=== PATIENT | female | born 1960 | race African-American/Black ===

== ENCOUNTER → 2017-04-08 | Outpatient (CLI) | payer OTHER | LOC: NPA 13:00 | DX: R69 Illness, unspecified (principal) ==

== ENCOUNTER 2017-11-17 23:43 | Observation (INO) | payer MEDICARE ==
[~2017-11-17] VITALS: Ht 154.9 cm; Wt 90.0 kg
[2017-11-18] VITALS (8 sets, daily range): BP systolic 103–168; BP diastolic 55–95
[2017-11-18 01:04] LABS: BASOPHILS # (AUTO) 0.1 (0.0-0.1); BASOPHILS % 1.2 % (0.0-1.0); EOSINOPHILS # (AUTO) 1.3 (0.0-0.4); EOSINOPHILS % 13.2 % (0.0-6.0); HEMATOCRIT 40.3 % (34.2-44.1); HEMOGLOBIN 13.1 g/dL (12.0-16.0); LYMPHOCYTES # (AUTO) 1.7 (1.0-3.2); LYMPHOCYTES % 17.7 % (18.0-39.1); MEAN CORPUSCULAR HEMOGLOBIN 29.2 pg (28-32); MEAN CORPUSCULAR HGB CONC 32.5 g/dL (31-35); MEAN CORPUSCULAR VOLUME 89.8 fL (81-99); MONOCYTES % 9.9 % (4.4-11.3); NEUTROPHILS # (AUTO) 5.7 (2.1-6.9); NEUTROPHILS % 57.8 % (38.7-80.0); PLATELET COUNT 187 x10e3/uL (140-360); RED BLOOD COUNT 4.49 x10e6/uL (3.6-5.1); RED CELL DISTRIBUTION WIDTH 13.4 % (11.7-14.4)
[2017-11-18 01:14] LABS: INR 1.11; PARTIAL THROMBOPLASTIN TIME 24.5 seconds (23.8-35.5); PROTHROMBIN TIME 13.5 seconds (11.9-14.5)
[2017-11-18 01:24] LABS: ALBUMIN 3.8 g/dL (3.5-5.0); ALBUMIN/GLOBULIN RATIO 0.7 (0.8-2.0); ANION GAP 19.8 mmol/L (8-16); CALCIUM 9.1 mg/dL (8.4-10.2); CREATININE, SERUM 5.44 mg/dL (0.57-1.11); POTASSIUM 4.8 mmol/L (3.5-5.1)
--- NOTE | 2017-11-18 01:24 | Diagnostic Imaging Report ---
CHEST 2 VIEWS, Technique: CHEST 2 VIEWS Comparison: None Clinical history: Chest pain DISCUSSION: Right central venous/dialysis catheter overlies the right atrium. Left axillary stents. Mildly enlarged cardiomediastinal silhouette. Aortic calcifications. Diffuse opacities with moderate left effusion. IMPRESSION: Enlarged cardiac silhouette with edema and moderate left effusion. Signed by: Dr Shabana Calero MD on 11/18/2017 1:20 AM
[2017-11-18] MEDS ORDERED: INSULIN LISPRO 100 UNIT/1 ML 3ML VIAL SQ STA (02:18)
[2017-11-18] MEDS ORDERED: ASPIRIN 81 MG CHEW TAB PO STA (02:32)
[2017-11-18] MEDS ORDERED: NITROGLYCERIN0.4 MG SL (02:37)
[2017-11-18] MEDS ORDERED: GABAPENTIN300 MG PO (02:37)
[2017-11-18] MEDS ORDERED: CARVEDILOL12.5 MG PO (02:37)
[2017-11-18] MEDS ORDERED: COUMADIN2.5 MG PO (02:37)
[2017-11-18] MEDS ORDERED: CLONIDINE HCL0.3 MG PO (02:37)
[2017-11-18] MEDS ORDERED: LISINOPRIL20 MG PO (02:37)
[2017-11-18] MEDS ORDERED: ATORVASTATIN CA20 MG PO (02:37)
[2017-11-18] MEDS ORDERED: ISOSORBIDE MONO20 MG PO (02:37)
[2017-11-18] MEDS ORDERED: SENSIPAR30 MG PO (02:37)
[2017-11-18] MEDS ORDERED: RENAGEL800 MG PO (02:37)
[2017-11-18] MEDS ORDERED: CLOPIDOGREL75 MG PO (02:37)
[2017-11-18] MEDS ORDERED: HYDRALAZINE HCL25 MG PO (02:37)
[2017-11-18] MEDS ORDERED: CLONIDINE HCL 0.2 MG TAB PO ONE (02:45)
[2017-11-18] MEDS: NITROGLYCERIN 2% OINT 1 GM PKT TOP SCH ×4 (02:57→16:23)
[2017-11-18] MEDS ORDERED: ONDANSETRON HCL INJ 2 MG/ML VIAL IV PRN (03:00)
[2017-11-18] MEDS ORDERED: MORPHINE SULFATE 2 MG/ML SYR IV PRN (03:00)
[2017-11-18] MEDS ORDERED: DEXTROSE 50% SYRINGE 50 ML IV PRN (03:00)
[2017-11-18 07:29] LABS: CREATINE KINASE MB 1.8 ng/mL (0-5.0)
[2017-11-18] MEDS: INSULIN REGULAR, HUMAN 100 UNIT/1 ML 3ML VIAL SQ SCH ×4 (08:12→21:00)
[2017-11-18] MEDS: ASPIRIN 81 MG ENTERIC COATED PO SCH (09:00)
[2017-11-18] MEDS: FAMOTIDINE 20 MG/2 ML VIAL IV SCH ×2 (09:00→22:16)
[2017-11-18 12:31] LABS: CREATINE KINASE MB 1.9 ng/mL (0-5.0)
[2017-11-18] MEDS ORDERED: NITROGLYCERIN 0.4 MG SUBL SL SCH (12:45)
[2017-11-18] MEDS: HYDRALAZINE HCL 25 MG TAB PO SCH ×2 (14:00→22:00)
[2017-11-18] MEDS: CLONIDINE HCL 0.3 MG TAB PO SCH ×3 (14:00→22:00)
--- NOTE | 2017-11-18 14:31 | History and Physical ---
PRIMARY CARE PHYSICIAN: . CORPORATION SECRETARY: Dr. Dick. CHIEF COMPLAINT: Chest pain. HISTORY OF PRESENT ILLNESS: This is a 56-year-old woman with a history of myocardial infarction with a stent in 2007, now developing substernal chest pain without any radiation. She had mild shortness of breath. Pain has been intermittent for some time, actually. Patient's last stress test was more than 2 years ago. She denies any dizziness, nausea, vomiting. Patient found to have markedly elevated blood pressure. She is admitted for further evaluation and management. PAST MEDICAL HISTORY: End-stage renal disease on hemodialysis Monday/Monday/Monday, myocardial infarction status post stent in 2007, hypertension, diabetes mellitus, diabetic neuropathy, hyperlipidemia, right lower extremity venous thromboembolism status post bypass procedure, status post utilization of an anticoagulant. PAST SURGICAL HISTORY: Fistula placement, coronary stent placement, bypass procedure of the right lower extremity. ALLERGIES: PER THE ELECTRONIC MEDICAL RECORDS. FAMILY HISTORY/SOCIAL HISTORY: Patient is single. She has children. No alcohol, illicit drugs or cigarettes. MEDICATIONS: Per the electronic medical records. Medications reviewed. REVIEW OF SYSTEMS: Denies any dizziness, fever, chills, sweats, nausea, vomiting, diarrhea, leg back pain, back pain, headache. VITAL SIGNS: Have been reviewed. PHYSICAL EXAMINATION GENERAL APPEARANCE: A tired-appearing woman resting in bed. HEENT: Anicteric. CARDIOVASCULAR: Normal S1/S2. No murmurs audible. LUNGS: She has moderate breath sounds. ABDOMEN: Soft, nondistended. She has mild tenderness in the epigastrium. MUSCULOSKELETAL: She has right chest hemodialysis catheter in place. She has right arm hemodialysis access. EXTREMITIES: No edema or calf tenderness. NEUROLOGICALLY: She is alert and oriented x3. She moves all extremities. SKIN: Dry. PSYCHIATRIC: Flat affect. LABS: Reviewed. ASSESSMENT: This is a 56-year-old woman. 1. Hypertensive emergency. 2. Chest pain. 3. End-stage renal disease on hemodialysis. 4. Diabetes mellitus. 5. Obesity. 6. Left pleural effusion. 7. Hyperlipidemia. 8. Diabetes with diabetic neuropathy. 9. History of venous thromboembolism of the right lower extremity. PLAN 1. Trend cardiac enzymes. 2. Obtain brain natriuretic peptide. 3. Obtain 2-D echocardiogram. 4. Cardiology consultation. 5. Nephrology consultation for dialysis. 6. Stress test inpatient versus outpatient. I will defer to Cardiology. 7. Continue Coumadin for the history of right leg venous thromboembolism. INR is currently subtherapeutic. 8. Will use Pepcid with her anticoagulant. 9. Continue Plavix, beta isiah, aspirin and other medications. Job#: [id number] EV
--- NOTE | 2017-11-18 17:43 | Consultation ---
DATE OF CONSULTATION: November 18, 2017 NEPHROLOGY CONSULTATION REASON FOR CONSULT: End-stage renal disease, fluid overload. HISTORY OF PRESENT ILLNESS: Mrs. Holland is a 56-year-old female with the following problem list: 1. End-stage renal disease on chronic hemodialysis, a patient of Dr. Serrano, dialysis on Monday/Monday/Monday at the [facility] on [address] [address]. 2. Atherosclerotic cardiovascular disease. 3. Coronary artery disease with a history of myocardial infarction, status post stent placement. 4. Morbid obesity. 5. Diabetes mellitus type 2. 6. Dyslipidemia. 7. History of right lower extremity venous thromboembolism. The patient was admitted with shortness of breath and chest pain that has been intermittent. She had a stress test 2 years ago but no cardiology followup since. Her last dialysis was Monday. PAST MEDICAL HISTORY: As above. PAST SURGICAL HISTORY: She is status post fistula creation, right lower extremity bypass, and coronary stent placement. ALLERGIES: PER ALLERGY LIST. MEDICATIONS: Per medication list. SOCIAL HISTORY: No tobacco, alcohol, or illicit or recreational drug use. The patient is single and has no children. REVIEW OF SYSTEMS: No fever or chills, masses, rashes. Chest pain has improved. Mild shortness of breath. No vomiting, diarrhea or constipation. No back pain, headaches, vision or hearing changes. PHYSICAL FINDINGS GENERAL: Alert, oriented, obese adult female in no acute distress. VITAL SIGNS: Blood pressure 132/62, heart rate 83 per minute. SHENT: Fundi not visualized. Conjunctivae anicteric. Head normocephalic, atraumatic. NECK: Supple. No JVD, no lymphadenopathy. LUNGS: Bilaterally clear to auscultation. HEART: Normal heart sounds. No additional sounds. ABDOMEN: Soft, nontender. No organomegaly. EXTREMITIES: No cyanosis, clubbing or edema. LABORATORY FINDINGS: Noted and reviewed. ASSESSMENT AND PLAN 1. End-stage renal disease. The patient will be continued on hemodialysis and will receive hemodialysis today due to chest pain and shortness of breath and mild volume overload. 2. Atherosclerotic cardiovascular disease. 3. Coronary artery disease. Further management per Cardiology. The patient is undergoing an echocardiogram. 4. Hypertension. Blood pressure is labile though mostly controlled. 5. Secondary hyperparathyroidism. The patient will be continued on phosphate binders and vitamin D3 analogs per outpatient protocol. Job#: [id number] EV
[2017-11-18] MEDS ORDERED: NITROGLYCERIN 0.4 MG SUBL SL PRN (18:00)
--- NOTE | 2017-11-18 18:25 | Consultation ---
DATE OF CONSULTATION: November 18, 2017 CARDIAC CONSULTATION REASON FOR CONSULTATION: Chest pain. HISTORY: This is a 56-year-old lady who is on hemodialysis for 10 years. She does have history of peripheral arterial vascular disease. She had right femoral-popliteal bypass surgery many years ago. Complicated by deep venous thrombosis and infection. She is on chronic anticoagulation. She had history of myocardial infarction and stent placement in [address] Dick. Patient is on dialysis. She started developing chest pain. She went to [facility]. "It was packed." She came to this institution. She is pain-free now. Two sets of cardiac enzymes are normal. Her chest pain sounds to be anginal. There is no pleuritic, no pericarditic component of her chest pain. She is followed regularly by her coordinator mining products, Dr. Dick. There is shortness of breath on exertion, exertional chest tightness, severe hypertension. In fact, the patient is on several blood pressure medications. Her blood pressure remained elevated. There is possible sleep apnea. No orthopnea. No paroxysmal nocturnal dyspnea. No syncope or presyncope. REVIEW OF SYSTEMS: CARDIAC: As per above. PULMONARY: No cough. No hemoptysis. GI: No hematemesis. No melena. : No hematuria. No dysuria. Patient does not make urine. NEUROMUSCULAR: Tingling and numbness of the lower extremities. Muscle aches and pain. No seizure activity. SOCIAL HISTORY: She does have good assistance from her daughter. She is single. She is nonsmoker, [id number]. HOME MEDICATIONS: Long list including: Atorvastatin 40 mg a day. Plavix 75 mg a day. Lisinopril 20 mg a day. Aspirin 81 mg a day. Coreg 25 mg twice a day. Warfarin 7.5 mg a day. Isosorbide mononitrate 60 mg a day. Clonidine 0.3 mg every 8 hours. Insulin. Hydralazine. Gabapentin. Pepcid. Other p.r.n. medications. ALLERGIES: CODEINE. PAST MEDICAL HISTORY: 1. End-stage renal disease on hemodialysis for 10 years. 2. Status post several left arm AV fistula surgeries. The latest needed to be removed because "it was on my nerve." Now having dialysis through tunneled hemodialysis catheter. 3. Myocardial infarction, stent in 2007. 4. Diabetes mellitus. 5. Hypertension. 6. Peripheral arterial vascular disease, status post right femoral-popliteal bypass surgery complicated by infection and deep venous thrombosis. Patient on anticoagulation. 7. Diabetic neuropathy. 8. Hyperlipidemia. 9. Obesity. 10. Aches and pains. FAMILY HISTORY: Strongly positive for coronary artery disease and diabetes mellitus. PHYSICAL EXAMINATION: GENERAL: Obese lady. VITAL SIGNS: Height of 5 feet 1 inch, weight of 187 pounds. Blood pressure 160/70. Heart rate of 80. Respiratory rate of 18. Temperature of 99 Fahrenheit. HEENT: Pupils are reactive. NECK: No elevation of jugular venous pulsation. CHEST: Decreased air entry but clear to auscultation and percussion. HEART: PMI 5th left intercostal space on 1st and 2nd heart sounds. ABDOMEN: Soft with good bowel sounds. No organomegaly. No abdominal bruits. LOWER EXTREMITIES: Big scar and big keloid on the right popliteal area. No distal pulses. NEUROLOGIC: Awake, alert, oriented. No motor deficits. OTHER FINDINGS: Tunneled hemodialysis catheter in place in the right chest. LABORATORY DATA: Sodium of 129, potassium of 4.8, BUN of 38, creatinine of 5.44. White blood cell count of 9.7, hemoglobin of 13.1, hematocrit 40%, platelet count of 187,000. IMAGING: Chest x-ray: Cardiomegaly. Tunneled catheter is in place. Moderate left pleural effusion. Calcified aorta. By report, EKG: Sinus tachycardia, biatrial enlargement, pulmonary disease pattern. IMPRESSION AND PLAN: 1. Hypertensive emergency. 2. Chest pain. 3. End-stage renal disease on hemodialysis. 4. Known coronary artery disease post myocardial infarction and percutaneous coronary intervention. 5. Diabetes mellitus. 6. Severe end-organ damage secondary to diabetes. 7. Status post right femoral-popliteal bypass. 8. History of deep venous thrombosis and complicated right lower extremity problems and infection following her bypass, still on anticoagulation for years. 9. Obesity. 10. Poor historian. 11. Left pleural effusion. Cardiac-olson, my recommendation will be as follows: 1. Serial cardiac enzymes. 2. Continuation of her current medication including beta isiah, Plavix, aspirin, MIGUEL inhibitor, statin. 3. Will check her echocardiogram, which was ordered. 4. Definitely patient needs to have cardiac workup. If her enzymes are normal, probably she can be dismissed home and follow up by her coordinator mining products for further workup. Plan discussed and explained to the patient. Questions are answered. Job#: [id number] EV
[2017-11-18 19:15] LABS: CREATINE KINASE MB 1.5 ng/mL (0-5.0)
[2017-11-18] MEDS: CARVEDILOL 12.5 MG TAB PO SCH (21:00)
[2017-11-18] MEDS ORDERED: HEPARIN SOD (PORCINE) 5,000 UNIT/ML VIAL IV ONE (21:45)
[2017-11-18] MEDS: ATORVASTATIN 20 MG TAB PO SCH (22:16)
[2017-11-18] MEDS: GABAPENTIN 300 MG CAP PO SCH (22:16)
[2017-11-19] VITALS (11 sets, daily range): BP systolic 84–192; BP diastolic 45–85
[2017-11-19 05:09] LABS: BASOPHILS # (AUTO) 0.1 (0.0-0.1); EOSINOPHILS # (AUTO) 1.3 (0.0-0.4); EOSINOPHILS % 14.9 % (0.0-6.0); HEMATOCRIT 33.9 % (34.2-44.1); HEMOGLOBIN 10.7 g/dL (12.0-16.0); LYMPHOCYTES # (AUTO) 1.8 (1.0-3.2); LYMPHOCYTES % 20.9 % (18.0-39.1); MEAN CORPUSCULAR HEMOGLOBIN 28.8 pg (28-32); MEAN CORPUSCULAR HGB CONC 31.6 g/dL (31-35); MEAN CORPUSCULAR VOLUME 91.4 fL (81-99); MONOCYTES # (AUTO) 0.9 (0.2-0.8); MONOCYTES % 9.9 % (4.4-11.3); NEUTROPHILS # (AUTO) 4.5 (2.1-6.9); PLATELET COUNT 152 x10e3/uL (140-360); RED BLOOD COUNT 3.71 x10e6/uL (3.6-5.1); RED CELL DISTRIBUTION WIDTH 13.4 % (11.7-14.4)
[2017-11-19 05:33] LABS: ALBUMIN 2.9 g/dL (3.5-5.0); ALBUMIN/GLOBULIN RATIO 0.7 (0.8-2.0); ANION GAP 15.7 mmol/L (8-16); CALCIUM 8.7 mg/dL (8.4-10.2); CHOL/HDL RATIO 2.3 (3.0-3.6); CREATININE, SERUM 5.15 mg/dL (0.57-1.11); POTASSIUM 4.7 mmol/L (3.5-5.1)
[2017-11-19] MEDS: HYDRALAZINE HCL 25 MG TAB PO SCH ×3 (06:00→22:00)
[2017-11-19] MEDS: CLONIDINE HCL 0.3 MG TAB PO SCH ×3 (06:00→22:00)
[2017-11-19] MEDS: NITROGLYCERIN 2% OINT 1 GM PKT TOP SCH ×4 (06:00→18:00)
[2017-11-19 06:03] LABS: FREE THYROXINE INDEX 2.1689 (1.4-3.8); THYROID STIMULATING HORMONE 1.137 uIU/mL (0.350-4.940)
[2017-11-19] MEDS: INSULIN REGULAR, HUMAN 100 UNIT/1 ML 3ML VIAL SQ SCH ×2 (07:30→11:12)
[2017-11-19] MEDS: FAMOTIDINE 20 MG/2 ML VIAL IV SCH ×2 (08:39→21:00)
[2017-11-19] MEDS: ASPIRIN 81 MG ENTERIC COATED PO SCH (08:39)
[2017-11-19] MEDS: CARVEDILOL 12.5 MG TAB PO SCH ×3 (08:40→21:00)
[2017-11-19] MEDS: GABAPENTIN 300 MG CAP PO SCH ×2 (08:40→22:28)
[2017-11-19] MEDS: CINACALCET 30 MG TAB PO SCH (08:40)
[2017-11-19] MEDS: CLOPIDOGREL BISULFATE 75 MG TAB PO SCH (08:41)
[2017-11-19] MEDS: WARFARIN SOD 2.5 MG TAB PO SCH (08:44)
[2017-11-19] MEDS: SEVELAMER CARBONATE 800 MG TAB PO SCH (08:44)
[2017-11-19] MEDS ORDERED: LISINOPRIL 20 MG TAB PO SCH (09:00)
[2017-11-19] MEDS ORDERED: ISOSORBIDE MONONITRATE 20 MG TAB PO SCH (09:00)
[2017-11-19] MEDS ORDERED: ASPIRIN EC81 MG PO (10:27)
--- NOTE | 2017-11-19 19:38 | Discharge Summary ---
PRINCIPAL DIAGNOSES 1. Hypertensive emergency. 2. Chest pain. 3. End-stage renal disease, on hemodialysis. 4. Diabetes mellitus. 5. Obesity. 6. Left pleural effusion. 7. Hyperlipidemia. 8. Diabetes with diabetic neuropathy. 9. History of venous thromboembolism of the right lower extremity. SECONDARY DIAGNOSES 1. End-stage renal disease, on hemodialysis Monday, Monday, Monday. 2. Myocardial infarction, status post stent in 2007. 3. Hypertension. 4. Diabetes mellitus. 5. Diabetic neuropathy. 6. Hyperlipidemia. 7. Right lower extremity venous thromboembolism, status post bypass procedure on no date. 8. Status post utilization of anticoagulant. 9. Fistula placement times 2. 10. Coronary stent placement. 11. Bypass procedure on the right lower extremity. CHIEF COMPLAINT: Chest pain. HPI: This is a 56-year-old woman with the history of NE and stent in 2007, began to develop substernal chest pain without any radiation accompanied by mild shortness of breath. Pain has been intermittent for sometime usually after meals. Previous stress test was greater than 2 years ago. The patient attempted to seek care at another facility and made her way to [facility] in [place], where she was found to have markedly elevated blood pressure. The patient was admitted for further evaluation and workup, which included serial cardiac enzymes, BNP, 2-D echo and cardiology consultation. On day 1, nephrology was consulted and the patient underwent additional dialysis session due to elevation in BNP/volume overload. Overnight, her blood pressure began to normalize down from her admission blood pressure 231 systolic to this a.m. of 124 with a systolic range over the last 24 hours being from 192 to 103. The patient has been afebrile throughout her day. The patient did have marked elevation in serum glucose and [id number] glucose. However, the patient did not include home regimen on reconciliation and verbalized she takes long-lasting insulin at home. DISCHARGE MEDICATIONS 1. The patient will go home with new prescription of aspirin 81 mg p.o. daily. 2. She will continue home medications, which include atorvastatin 40 mg p.o. at nightly. 3. Coreg 25 mg once daily. 4. Sensipar 30-mg tablets times 3 once daily. 5. Clonidine 0.3 mg daily. 6. Plavix 75-mg tablets once daily. 7. Neurontin 300 mg daily. 8. Hydralazine 50 mg p.o. q.6. 9. Isosorbide mononitrate 20 mg times 3. 10. Lisinopril 30 mg once daily. 11. P.r.n. sublingual nitro for chest pain. 12. Renagel 800-mg tablets as directed. 13. Anticoagulation Coumadin 2.5-mg tablet times 3 daily. FOLLOWUPS AND REFERRALS: The patient is to resume home insulin regimen and monitor fingerstick glucose before meals and record per her primary care provider, Dr. Trinity Mendoza, which she will need to follow up with in 1-2 weeks. Additionally, the patient was instructed to follow up with relationship banker, Dr. Dick. She verbalized she has an appointment this November. She was further instructed to follow 1800 ADA diet. CONDITION ON DISCHARGE: The patient is stable. Denies and voiced no complaints. Dictated by Uriel Merritt NP Job#: [id number] CQ
[2017-11-19] MEDS: ATORVASTATIN 20 MG TAB PO SCH (22:28)
[2017-11-20 03:15] VITALS: BP 125/60
[2017-11-20] MEDS: HYDRALAZINE HCL 25 MG TAB PO SCH ×2 (06:00→14:00)
[2017-11-20] MEDS: CLONIDINE HCL 0.3 MG TAB PO SCH ×2 (06:00→14:00)
[2017-11-20] MEDS: NITROGLYCERIN 2% OINT 1 GM PKT TOP SCH ×4 (06:00→17:04)
[2017-11-20] MEDS ORDERED: DEXTROSE 50% SYRINGE 50 ML IV PRN (07:45)
[2017-11-20 08:07] LABS: BASOPHILS # (AUTO) 0.1 (0.0-0.1); BASOPHILS % 1.1 % (0.0-1.0); EOSINOPHILS # (AUTO) 1.3 (0.0-0.4); EOSINOPHILS % 14.4 % (0.0-6.0); HEMATOCRIT 35.5 % (34.2-44.1); HEMOGLOBIN 11.4 g/dL (12.0-16.0); LYMPHOCYTES # (AUTO) 1.8 (1.0-3.2); MEAN CORPUSCULAR HEMOGLOBIN 29.2 pg (28-32); MEAN CORPUSCULAR HGB CONC 32.1 g/dL (31-35); MEAN CORPUSCULAR VOLUME 90.8 fL (81-99); MONOCYTES # (AUTO) 0.9 (0.2-0.8); MONOCYTES % 9.5 % (4.4-11.3); NEUTROPHILS # (AUTO) 5.2 (2.1-6.9); NEUTROPHILS % 55.8 % (38.7-80.0); PLATELET COUNT 144 x10e3/uL (140-360); RED BLOOD COUNT 3.91 x10e6/uL (3.6-5.1); RED CELL DISTRIBUTION WIDTH 13.7 % (11.7-14.4)
[2017-11-20 08:20] LABS: ANION GAP 18.8 mmol/L (8-16); CALCIUM 8.5 mg/dL (8.4-10.2); CREATININE, SERUM 7.16 mg/dL (0.57-1.11); POTASSIUM 5.8 mmol/L (3.5-5.1)
[2017-11-20 08:37] VITALS: BP 120/68
[2017-11-20 08:40] VITALS: BP 138/65
[2017-11-20] MEDS: CARVEDILOL 12.5 MG TAB PO SCH (09:00)
[2017-11-20] MEDS: WARFARIN SOD 2.5 MG TAB PO SCH (09:00)
[2017-11-20] MEDS: GABAPENTIN 300 MG CAP PO SCH (09:52)
[2017-11-20] MEDS: ASPIRIN 81 MG ENTERIC COATED PO SCH (09:52)
[2017-11-20] MEDS: SEVELAMER CARBONATE 800 MG TAB PO SCH (09:52)
[2017-11-20] MEDS: FAMOTIDINE 20 MG/2 ML VIAL IV SCH (09:52)
[2017-11-20] MEDS: CLOPIDOGREL BISULFATE 75 MG TAB PO SCH (09:52)
[2017-11-20] MEDS: CINACALCET 30 MG TAB PO SCH (09:53)
[2017-11-20] MEDS: INSULIN REGULAR, HUMAN 100 UNIT/1 ML 3ML VIAL SQ SCH ×3 (10:26→16:30)
[2017-11-20 11:25] VITALS: BP 125/59
[2017-11-20] MEDS ORDERED: SODIUM CHLORIDE 0.9% 1000ML 1,000 ML ONE (13:31)
[2017-11-20] MEDS ORDERED: HEPARIN SOD (PORCINE) 1000 UNIT/ML 10ML MDV IM ONE (13:45)
[2017-11-20] MEDS ORDERED: HEPARIN SOD (PORCINE) 1000 UNIT/ML SDV IV ONE (14:00)
[2017-11-20] MEDS ORDERED: ACETAMINOPHEN 325 MG TAB PO PRN (14:45)
[2017-11-20 16:00] VITALS: BP 157/57
[2017-11-20] MEDS ORDERED: ATORVASTATIN 40 MG TAB PO SCH (21:00)
--- NOTE | 2017-11-20 21:01 | Discharge Summary ---
AMENDMENT TO DISCHARGE SUMMARY JOB #[id number] The patient languished on the unit throughout the afternoon of November 19. At which time, the nursing staff continued to monitor and provide care. The patient was noted to have an episode of asymptomatic hypotension at about 4 p.m. RN notified the attending and it was elected that the patient would stay overnight for monitoring. However, the patient has hemodialysis chair time at 0615 on Monday, Monday, Monday. Nephrology was notified and the patient had arrangements made for HD inhouse facility prior to discharge this day as her day had been missed. The patient's vital signs remained stable throughout the day and she was placed on sliding scale short-acting insulin. Patient was stable throughout the day, tolerated hemodialysis and left the facility in stable condition. Dictated by Uriel Merritt NP Job#: [id number] CQ
== END 2017-11-20 19:00 | disposition home or self-care (01) ==
LOC: ER 23:43 → ERHOLD 11-18 03:02 → IMCU 11-18 04:03
PROVIDERS: ADMIT Internal Medicine; ATTEND Internal Medicine
DX: I16.1 Hypertensive emergency (principal); E87.70 Fluid overload, unspecified; R07.9 Chest pain, unspecified; I25.10 Atherosclerotic heart disease of native coronary artery without angina pectoris; Z95.5 Presence of coronary angioplasty implant and graft; I13.11 Hypertensive heart and chronic kidney disease without heart failure, with stage 5 chronic kidney disease, or end stage renal disease; E11.22 Type 2 diabetes mellitus with diabetic chronic kidney disease; E11.51 Type 2 diabetes mellitus with diabetic peripheral angiopathy without gangrene; N18.6 End stage renal disease; R53.81 Other malaise; N17.9 Acute kidney failure, unspecified; Z86.718 Personal history of other venous thrombosis and embolism; E66.9 Obesity, unspecified; Z95.820 Peripheral vascular angioplasty status with implants and grafts; N25.81 Secondary hyperparathyroidism of renal origin; I25.2 Old myocardial infarction; E11.42 Type 2 diabetes mellitus with diabetic polyneuropathy; E78.5 Hyperlipidemia, unspecified
CPT/HCPCS: 36415 ×3; 71046; 80048; 80053 ×2; 80061; 82550; 82553; 82947; 82948 ×3; 83690; 83880; 84436; 84443; 84479; 84484; 85025 ×3; 85610; 85730; 86704; 86705; 86706; 87340; 90937 ×2; 93005; 93306; 99284; G0378 ×3; J1642; J1644 ×2; J7030; J7799